=== PATIENT | male | born 1975 | race Caucasian/White ===

== ENCOUNTER 2025-04-16 08:54 | Inpatient (IN) ==
[2025-04-16] MEDS: TICAGRELOR 90 MG TAB ONE (09:11)
--- NOTE | 2025-04-16 09:14 | Emergency Department Note ---
Impression & Plan Cardiac arrest with ventricular fibrillation, ST elevation (STEMI) myocardial infarction ED Provider Note NAME: SAVITA OROZCO Jr AGE: 49 SEX: M : 1975 ARRIVES VIA: Ambulance INFORMANT: Patient, ED PROVIDER(S): Mayra Guerrero MD CHIEF COMPLAINT: Cardiac arrest HPI: This is a 49-year-old male present for postcardiac arrest. Patient reported complaint of shortness of breath earlier and then went unresponsive. Family started CPR. BLS arrived and did 2 shocks as per the AED. He ALS arrived and continued with 2 shocks as patient was in V-fib. Patient regained pulses at this time. Was given amiodarone 150 mg. Was given magnesium, aspirin. Patient arrives awake, alert, in pain from his chest. He states he has associated chest pressure/pain currently. He is diaphoretic. ROS: See above HPI for pertinent positives & negatives. A total of 10 systems reviewed and were otherwise negative. PAST MEDICAL HISTORY: See Below PAST SURGICAL HISTORY: See Below FAMILY HISTORY: See Below SOCIAL HISTORY: See Below HOME MEDICATIONS: See Below ALLERGIES: See Below VITALS: See Below PHYSICAL EXAMINATION: General: Moderate to severe distress due to pain Head: Normocephalic and atraumatic Eyes: Normal inspection, extraocular muscles intact Ear, nose, throat: Normal external exam Neck: Normal range of motion Respiratory: lungs clear to auscultation bilaterally Cardiovascular: Regular rate/rhythm, no murmur GI: soft, nontender, no guarding or rebound Extremities: nontender, moves all extremities Neuro: The patient awake and alert, appropriately conversive, no focal deficits, symmetric faces Skin: Warm, dry, and intact MEDICAL DECISION MAKING: This is a 49-year-old male presented postcardiac arrest. Patient was in V-fib with 4 shocks total 150 Amio, 1 g in magnesium, aspirin, fentanyl given and route. - Bedside echocardiogram performed by me reveals mildly reduced EF, no pericardial effusion, no right heart strain - Dr. Noriega and Dr. Hoffman, cardiology at bedside. They will take the patient up to the cardiac Sql Manager. - ECG independently interpreted by me with normal sinus rhythm, rate of 83, normal TX, left bundle branch block, normal QTc, no ST segment elevations consistent with STEMI criteria -Patient taken up to cardiac catheterization lab. I was then called by Dr. Hoffman to perform intubation as patient was having persistent pain and needing further sedation; concerning for airway protection -Patient assessed, Mallampati 4. Due to patient currently cardiac catheterization table, RSI was performed with rocuronium 100 and etomidate 25 - Patient preoxygenated. Upon initial intubation attempt, significant difficulty with patient's large tongue and positioning. Was able to visualized cords. Unable to pass bougie. Removed Cromwell scope and had difficulty with bagging. He became slightly hypoxic. Oral airway was placed to help improve oxygenation only minimal success. - Second attempt with a Mac 4 blade also unsuccessful due to patient's habitus. Anesthesia called at this time. On second attempt patient desatted significantly, and patient's pulse was temporarily lost. CPR was initiated by cardiac catheterization staff. After given epinephrine, successful ROSC obtained. - Anesthesia takes over and is able to intubate the patient. Endotracheal Intubation Indication sedation, airway protection The patient was on 100% oxygen via NRB prior to the procedure. Suction, airway equipment, RSI drugs, respiratory equipment, and appropriate personnel were prepared prior to the initiation of the procedure. A time out was taken. Induction was performed with rocuronium and etomidate after observing the clinical benefit of the medications, the airway was not visualized utilizing a glide scope. After multiple attempts, this unsuccessful. Anesthesia takes over successful intubation after repositioning. Differential diagnosis: ACS, Vfib, CHF Diagnostics interpreted by me: ECG: None Cardiac Monitoring: An order was placed for continuous cardiac monitoring. The monitor shows a rate of with rhythm. Past Med/Surg History Problem List (Updated 04/17/25 @ 15:32 by Mayra Guerrero MD) Hypoxic respiratory failure Encephalopathy acute Thromboembolism Cardiomyopathy Type 2 diabetes mellitus Heart failure with reduced ejection fraction ST elevation (STEMI) myocardial infarction (Acute) Cardiac arrest with ventricular fibrillation (Acute) Abnormal abdominal ultrasound Fatty liver Social History Smoking Status: Unknown if ever smoked Preferred Language: Ethiopian Beliefs That Will Affect Care: Spiritual Feels Safe at Home: Yes Allergies Allergies Allergy/AdvReac Type Severity Reaction Status Date / Time No Known Allergies Allergy Verified 12/02/24 08:24 Home Meds Home Medications Medication Instructions Recorded Confirmed No Known Home Medications 12/02/24 12/02/24 Results & Data (ED) Vital Signs Vital Signs - 24 hr 04/16/25 09:00 04/16/25 09:14 04/16/25 09:21 Temperature 36.6 C Temperature Source Axillary Pulse Rate 83 84 Respiratory Rate 14 Respiratory Depth Normal Blood Pressure 151/91 H Blood Pressure Mean 111 Pulse Oximetry 93 Oxygen Delivery Method Nasal Cannula Room Air Oxygen Flow Rate 6 Fraction of Inspired Oxygen Sepsis Recent Fever Within 48 Hours No Sepsis New/Unexplained Change in Mental Status No Sepsis Action Taken by Nursing No Action Required End-Tidal CO2 43 04/16/25 10:48 Temperature Temperature Source Pulse Rate 120 H Respiratory Rate 18 Respiratory Depth Blood Pressure Blood Pressure Mean Pulse Oximetry 98 Oxygen Delivery Method Oxygen Flow Rate Fraction of Inspired Oxygen 100 Sepsis Recent Fever Within 48 Hours Sepsis New/Unexplained Change in Mental Status Sepsis Action Taken by Nursing End-Tidal CO2 Laboratory Data 04/16/25 09:02 04/16/25 09:02 Lab Results 04/16/25 04/16/25 04/16/25 Range/Units 09:02 09:04 09:39 WBC 16.13 H (4.8-10.8) K/ul RBC 4.89 (4.70-6.10) M/uL Hgb 13.8 L (14.0-18.0) g/dl POC Hgb 14.6 (14.0-18.0) g/dl Hct 42.4 (42.0-52.0) % POC Hct 43 (42-52) % MCV 86.7 (80.0-100.0) fL MCH 28.2 (25.0-34.0) pg MCHC 32.5 (32.0-36.0) g/dL RDW Std Deviation 50.1 H (36.4-46.3) fL RDW Coeff of Deb 15.9 H (11.5-14.5) % Plt Count 260 (130-400) K/uL MPV 12.4 (9.4-12.4) fL Immature Gran % (Auto) 5.5 % Neut % (Auto) 77.6 % Lymph % (Auto) 12.2 % Sanborn % (Auto) 2.7 % Eos % (Auto) 1.5 % Baso % (Auto) 0.5 % Neut # (Auto) 12.52 H (1.40-6.50) K/uL Lymph # (Auto) 1.97 (1.20-3.40) K/uL Sanborn # (Auto) 0.43 (0.11-0.59) K/uL Eos # (Auto) 0.25 (0.00-0.50) K/uL Baso # (Auto) 0.08 (0.00-0.20) K/uL Immature Gran # (Auto) 0.88 H (0.01-0.20) K/uL Activ Coag Time Kaolin 176 H (94-140) SECONDS POC Sodium 139 (135-144) mmol/L Sodium 139 (136-145) mmol/L POC Potassium 4.3 (3.3-5.0) mmol/L Potassium 4.3 (3.5-5.1) mmol/L POC Chloride 104 (101-112) mmol/L Chloride 104 (98-107) mmol/L Carbon Dioxide 23 (21-32) mmol/L POC Total CO2 22 L (24-31) mmol/L Anion Gap 12 H (3-11) POC Anion Gap 19.0 (16-25) mmol/L POC BUN 22 H (7-18) mg/dl BUN 22 (6-23) mg/dl Creatinine 1.55 H (0.6-1.4) mg/dl POC Creatinine 1.7 H (0.6-1.3) mg/dl Est Cr Clr Drug Dosing Not Reportable eGFR 55.21 BUN/Creatinine Ratio 14.2 (10-20) Glucose 336 H* (70-99(Fasting)) mg/dl POC Glucose (other) 327 H (70-99) mg/dl Calcium 9.0 (8.6-10.3) mg/dl POC Ioniz Calcium Darrin 1.22 (1.12-1.32) mmol/l Total Bilirubin 0.5 (0.2-1.0) mg/dl AST 344 H (13-39) U/L ALT 344 H (7-52) U/L Alkaline Phosphatase 126 H (34-104) U/L Troponin I High Sens 636.5 H* (0-20) pg/ml Total Protein 6.5 (6.0-8.3) gm/dl Albumin 3.9 (3.4-5.0) gm/dl Globulin 2.6 (2.5-4.0) gm/dl Albumin/Globulin Ratio 1.5 (0.9-2) Lipase 52 (11-82) U/L 07/30/25 07/30/25 Range/Units 10:10 10:47 WBC (4.8-10.8) K/ul RBC (4.70-6.10) M/uL Hgb (14.0-18.0) g/dl POC Hgb (14.0-18.0) g/dl Hct (42.0-52.0) % POC Hct (42-52) % MCV (80.0-100.0) fL MCH (25.0-34.0) pg MCHC (32.0-36.0) g/dL RDW Std Deviation (36.4-46.3) fL RDW Coeff of Deb (11.5-14.5) % Plt Count (130-400) K/uL MPV (9.4-12.4) fL Immature Gran % (Auto) % Neut % (Auto) % Lymph % (Auto) % Sanborn % (Auto) % Eos % (Auto) % Baso % (Auto) % Neut # (Auto) (1.40-6.50) K/uL Lymph # (Auto) (1.20-3.40) K/uL Sanborn # (Auto) (0.11-0.59) K/uL Eos # (Auto) (0.00-0.50) K/uL Baso # (Auto) (0.00-0.20) K/uL Immature Gran # (Auto) (0.01-0.20) K/uL Activ Coag Time Kaolin 164 H 187 H (94-140) SECONDS POC Sodium (135-144) mmol/L Sodium (136-145) mmol/L POC Potassium (3.3-5.0) mmol/L Potassium (3.5-5.1) mmol/L POC Chloride (101-112) mmol/L Chloride (98-107) mmol/L Carbon Dioxide (21-32) mmol/L POC Total CO2 (24-31) mmol/L Anion Gap (3-11) POC Anion Gap (16-25) mmol/L POC BUN (7-18) mg/dl BUN (6-23) mg/dl Creatinine (0.6-1.4) mg/dl POC Creatinine (0.6-1.3) mg/dl Est Cr Clr Drug Dosing eGFR BUN/Creatinine Ratio (10-20) Glucose (70-99(Fasting)) mg/dl POC Glucose (other) (70-99) mg/dl Calcium (8.6-10.3) mg/dl POC Ioniz Calcium Darrin (1.12-1.32) mmol/l Total Bilirubin (0.2-1.0) mg/dl AST (13-39) U/L ALT (7-52) U/L Alkaline Phosphatase (34-104) U/L Troponin I High Sens (0-20) pg/ml Total Protein (6.0-8.3) gm/dl Albumin (3.4-5.0) gm/dl Globulin (2.5-4.0) gm/dl Albumin/Globulin Ratio (0.9-2) Lipase (11-82) U/L Administered Medications Discontinued Medications Amiodarone HCl/Dextrose (Amiodarone 150mg / 100ml D5w (Sql Manager Use Only)) Confirm Administered Dose 150 mg IV .[facility] ONE Stop: 04/16/25 09:15 Last Admin: 04/16/25 11:31 Dose: Not Given Documented By: AAF Amiodarone HCl/Dextrose (Amiodarone 360mg / 200ml D5w (Sql Manager Use Only)) Confirm Administered Dose 360 mg IV .[facility] ONE Stop: 04/16/25 09:16 Last Admin: 04/16/25 09:15 Dose: 1 mg Documented By: DOMINGA Amiodarone HCl/Dextrose (Amiodarone 150mg / 100ml D5w) Confirm Administered Dose 150 mg IV .[facility] ONE Stop: 04/16/25 12:30 Last Admin: 04/16/25 12:40 Dose: Not Given Documented By: CONSTANZA Amiodarone HCl (Amiodarone Hcl Inj 50 Mg/Ml 3 Ml Vial (Sql Manager Use Only)) Confirm Administered Dose 150 mg IV .[facility] ONE Stop: 04/16/25 09:14 Last Admin: 04/16/25 11:32 Dose: Not Given Documented By: AAF Fentanyl Citrate (Fentanyl Citrate Pf 100 Mcg/2 Ml Vial) Confirm Administered Dose 100 mcg .ROUTE .STorat.io-MED ONE Stop: 04/16/25 09:02 Last Admin: 04/16/25 11:28 Dose: 150 mcg Documented By: AAF Fentanyl Citrate (Fentanyl Citrate Pf 100 Mcg/2 Ml Vial) Confirm Administered Dose 100 mcg .ROUTE .STK-MED ONE Stop: 04/16/25 09:04 Last Admin: 04/16/25 11:30 Dose: Not Given Documented By: AAF Fentanyl Citrate (Fentanyl Citrate Pf 100 Mcg/2 Ml Vial) Confirm Administered Dose 100 mcg .ROUTE .STK-MED ONE Stop: 04/16/25 09:37 Last Admin: 04/16/25 11:33 Dose: Not Given Documented By: AAF Fentanyl Citrate (Fentanyl Citrate Pf 100 Mcg/2 Ml Vial) 50 mcg IV NOW STA Stop: 04/16/25 12:44 Last Admin: 04/16/25 12:53 Dose: 50 mcg Documented By: ES Fentanyl Citrate (Fentanyl Citrate 2,500 Mcg/250 Ml Bag) Confirm Administered Dose 2,500 mcg IV .STK-MED ONE Stop: 04/16/25 12:46 Last Admin: 04/16/25 12:46 Dose: 25 mcg Documented By: CONSTANZA Co-signed By: ANGÉLICA Furosemide (Furosemide 40 Mg/4 Ml Vial) Confirm Administered Dose 40 mg IV .STK- MED ONE Stop: 04/16/25 09:58 Last Admin: 04/16/25 10:00 Dose: 40 mg Documented By: DOMINGA Furosemide (Furosemide Inj 20 Mg/2 Ml Vial) Confirm Administered Dose 20 mg IV .STK-MED ONE Stop: 04/16/25 12:34 Last Admin: 04/16/25 12:37 Dose: 20 mg Documented By: CONSTANZA Furosemide (Furosemide 40 Mg/4 Ml Vial) Confirm Administered Dose 40 mg IV .STK- MED ONE Stop: 04/16/25 12:34 Last Admin: 04/16/25 12:37 Dose: 40 mg Documented By: CONSTANZA Furosemide (Furosemide 40 Mg/4 Ml Vial) 60 mg IV ONE ONE Stop: 04/16/25 12:33 Last Admin: 04/16/25 12:41 Dose: Not Given Documented By: CONSTANZA Heparin Sodium (Porcine) (Heparin (Porcine) 1000 Unit/Ml 10 Ml (Sql Manager Use Only)) Confirm Administered Dose 10,000 units .ROUTE .STK-MED ONE Stop: 04/16/25 09:02 Last Admin: 04/16/25 11:29 Dose: 16,000 units Documented By: AAF Heparin Sodium (Porcine) (Heparin Sod (Porcine) 1000 Unit/Ml) Confirm Administered Dose 1,000 units .ROUTE .STK-MED ONE Stop: 04/16/25 09:07 Last Admin: 04/16/25 11:30 Dose: Not Given Documented By: AAF Heparin Sodium (Porcine) (Heparin (Porcine) 1000 Unit/Ml 10 Ml (Sql Manager Use Only)) Confirm Administered Dose 10,000 units .ROUTE .STK-MED ONE Stop: 04/16/25 09:41 Last Admin: 04/16/25 11:33 Dose: Not Given Documented By: AAF Heparin Sodium (Porcine) (Heparin (Porcine) 1000 Unit/Ml 10 Ml (Sql Manager Use Only)) Confirm Administered Dose 10,000 units .ROUTE .STK-MED ONE Stop: 04/16/25 10:50 Last Admin: 04/16/25 11:35 Dose: Not Given Documented By: AAF Heparin Sodium/Sodium Chloride (Heparin In Nss Infusion 1000 Unit/500 Ml (2 U/Ml) Bag) Confirm Administered Dose 3,000 units IV .STK-MED ONE Stop: 04/16/25 09:02 Last Admin: 04/16/25 11:29 Dose: 3,000 units Documented By: AAF Amiodarone HCl/Dextrose (Nexterone / D5w) 360 mg in 200 mls @ 33.333 mls/hr IV ONE ONE; Protocol Stop: 04/16/25 17:57 Last Admin: 04/16/25 12:39 Dose: 1 mg/min, 33.3 mls/hr Documented By: CONSTANZA Co-signed By: ANGÉLICA Propofol (Diprivan) 1,000 mg in 100 mls @ 16.308 mls/hr IV .Q6H8M [facility]; Protocol Stop: 04/19/25 11:44 Last Admin: 04/16/25 12:42 Dose: 20 mcg/kg/min, 16.3 mls/hr Documented By: CONSTANZA Co-signed By: clarissa Levetiracetam (Levetiracetam 500 Mg/5 Ml Vial) 4,000 mg IV NOW STA Stop: 04/16/25 12:45 Last Admin: 04/16/25 12:48 Dose: 4,000 mg Documented By: CONSTANZA Levetiracetam (Levetiracetam 500 Mg/5 Ml Vial) Confirm Administered Dose 4,000 mg IV .STK-MED ONE Stop: 04/16/25 12:47 Last Admin: 04/16/25 12:50 Dose: Not Given Documented By: ES Lorazepam (Lorazepam 2 Mg/1 Ml Vial) Confirm Administered Dose 4 mg .ROUTE .STK- MED ONE Stop: 04/16/25 12:30 Last Admin: 04/16/25 12:40 Dose: 3 mg Documented By: ES Midazolam HCl (Midazolam Hcl 1 Mg/Ml 2ml Vial) Confirm Administered Dose 2 mg .ROUTE .STK-MED ONE Stop: 04/16/25 09:02 Last Admin: 04/16/25 11:29 Dose: 5 mg Documented By: AAF Midazolam HCl (Midazolam Hcl 1 Mg/Ml 2ml Vial) Confirm Administered Dose 2 mg .ROUTE .STK-MED ONE Stop: 04/16/25 09:36 Last Admin: 04/16/25 11:33 Dose: Not Given Documented By: AAF Midazolam HCl (Midazolam Hcl 1 Mg/Ml 2ml Vial) Confirm Administered Dose 2 mg .ROUTE .STK-MED ONE Stop: 04/16/25 10:12 Last Admin: 04/16/25 11:33 Dose: Not Given Documented By: AAF Miscellaneous (Rapid Sequence Induction Bag) Confirm Administered Dose 1 each N/A .STK-MED ONE Stop: 04/16/25 10:12 Last Admin: 04/16/25 11:34 Dose: 1 each Documented By: AAF Carrollaneous (Icu Protocol For Hyperglycemia) 1 each N/A ACHS ADE Stop: 04/18/25 16:29 Last Admin: 04/16/25 12:41 Dose: Not Given Documented By: ES Nicardipine HCl (Nicardipine 2,000 Mcg/20 Ml Syr) Confirm Administered Dose 2,000 mcg .ROUTE .STK-MED ONE Stop: 04/16/25 09:04 Last Admin: 04/16/25 11:30 Dose: 2,000 mcg Documented By: AAF Nitroglycerin/Dextrose (Nitroglycerin/D5w 100mcg/Ml 20ml Syr) Confirm Administered Dose 2,000 mcg .ROUTE .STK-MED ONE Stop: 04/16/25 09:03 Last Admin: 04/16/25 11:29 Dose: 2,000 mcg Documented By: AAF Norepinephrine Bitartrate (Norepinephrine/D5w 4 Mg/250 Ml) Confirm Administered Dose 4 mg IV .STK-MED ONE Stop: 04/16/25 10:33 Last Admin: 04/16/25 11:35 Dose: Not Given Documented By: AAF Phenylephrine HCl (Phenylephrine 100mcg/Ml 5ml Syr) Confirm Administered Dose 100 mcg .ROUTE .STK-MED ONE Stop: 04/16/25 09:38 Last Admin: 04/16/25 11:33 Dose: Not Given Documented By: AAF Propofol (Propofol Iv Emulsion 10 Mg/Ml 100 Ml Vial (Sql Manager Use Only)) Confirm Administered Dose 1,000 mg IV .STK-MED ONE Stop: 04/16/25 10:26 Last Admin: 04/16/25 11:34 Dose: 1,000 mg Documented By: AAF Ticagrelor (Ticagrelor 90 Mg Tab) Confirm Administered Dose 180 mg .ROUTE .STK- MED ONE Stop: 04/16/25 09:08 Last Admin: 04/16/25 09:11 Dose: 180 mg Documented By: AAF Vecuronium Duncombe (Vecuronium [place]combe 10 Mg Vial) 10 mg IV NOW STA Stop: 04/16/25 12:37 Last Admin: 04/16/25 12:46 Dose: 10 mg Documented By: CONSTANZA Co-signed By: RYLAND Discharge Plan Visit Data Chief Complaint: Chest Pain Stated Complaint: Post-Cardiac Arrest ED Provider: Mayra Guerrero Discharge Problem: Cardiac arrest with ventricular fibrillation, ST elevation (STEMI) myocardial infarction Patient Disposition: Admitted As Inpatient Condition: Critical Discharge Instructions Interventions: ED Discharge Assessment Last Done: 04/16/25 09:34
[2025-04-16] MEDS: AMIODARONE 360MG / 200ML D5W (CATH LAB USE ONLY) IV ONE (09:15)
--- NOTE | 2025-04-16 09:22 | Cardiology Consultation ---
Date of Consultation April 16, 2025 Assessment & Plan (1) Cardiac arrest with ventricular fibrillation: (2) ST elevation (STEMI) myocardial infarction: (3) Heart failure with reduced ejection fraction: (4) Type 2 diabetes mellitus: (5) Cardiomyopathy: (6) Thromboembolism: Plan ASSESSMENT/PLAN: 1. V-fib cardiac arrest: Prehospital and received CPR from followed by defibrillation x 4 and amiodarone 150 mg IV. Sinus rhythm here. Suspect from ischemic heart disease given post resuscitation ECG with ST elevation. Depending on hospital course and findings during cardiac catheterization, possible EP evaluation. 2. STEMI: ST elevations anterolateral leads. Ongoing chest pain. Administered nitroglycerin sublingual in the ER as he was also hypertensive. Has received pain meds. Full dose aspirin. Brilinta requested. Emergent cardiac catheterization recommended. Risk and benefits discussed with him and he verbally consented to proceed. Dr. Hoffman of interventional cardiology will perform the emergent procedure. 3. History of heart failure with reduced EF: Based on his 's description, likely heart failure with improved EF. Echo will be performed. Continue GDMT. 4. Cardiomyopathy: Apparently in the setting of COVID in 2022. Last EF per his was approximately 1.5 years ago at 50%. Echo as above. 5. Hypertension: Continue home medications as able. 6. Dyslipidemia: Statin therapy not on medication list. Can confirm with family later. Recommend high intensity statin therapy if no known adverse reaction/intolerance issues. On Zetia at home. 7. CAD: His reported LAD issues in the past but details unclear. Antiplatelet therapy. Medical therapy as above. Cardiac cath. 8. Disposition: Emergent cardiac catheterization with Dr. Hoffman. Highly complex medical issues. 40 min of critical care time spent, including evaluating patient in ER, reviewing cath images, coordinating care, discussing/meeting with patient's , and conversing with ER physician and interventional cardiology. History of Present Illness Reason for Consultation: STEMI/cardiac arrest Requesting Physician: Dr. Guerrero Attending Physician: Satya Hoffman MD History of Present Illness Mr. Bustos is a 49-year-old gentleman who presented to the ER this morning after cardiac arrest at home with ventricular fibrillation and ST elevations noted on postresuscitation ECG. Mr. Bustos was seen in the ER minutes after arrival. He was unable to give a past medical history although he was awake. He was expressing significant chest pain following CPR and with his ID. He also admitted to shortness of breath. He did not know his medications and other than diabetes, did not know his medical history. He was unaware of his medications. ER staff/EMS reported that he had an ID in the past. He confirmed this and stated he was in [place] but does not recall having a cardiac catheterization and denied any stents. ECG prior to arrival demonstrated sinus rhythm with significant ST elevations in the anterolateral leads. He received full dose aspirin by EMS, defibrillation x 4, amiodarone 150 mg IV, and Zofran. History was obtained from patient, although limited, and discussing with EMS, who was still present at the bedside. They provided a medication list which included carvedilol, eplerenone, Eliquis, Entresto, ezetimibe, Jardiance, Lasix, and Tradjenta. His then presented to the [facility] holding area. They have been 8 weeks but no some of his medical history. She reports having an ID in 2022 in [place]. She describes a " maker" situation and also clots in his liver and kidneys. She reports that he had a chest tube at that time based on previous conversations with him. She believes he had COVID at the time of the clots and ID. She does not recall him mentioning a stent. This morning, they were having intercourse and he began having shortness of breath and then lost consciousness. She quickly turned him on his back and did chest compressions, estimated for 10 minutes before EMS arrived. She states that he has not seen a sheet metal helper for at least 18 months. He goes to the [facility] for his usual care. She does not know the doses of his medications but provided a list noted above. She states that he is compliant with his medical therapy. Review of systems: Patient unable to provide much history due to significant pain. Family history: No known premature CAD per patient's . Social history: Lives at home with his , Hui. They have remarried the summer 2024. Previous tobacco smoker, currently vapes. No alcohol or drugs. 2 children from his first marriage (Ermelinda and Erik). First in 2022. His presented to the [facility] holding area following initial visit in the ER. Allergies Allergy/AdvReac Type Severity Reaction Status Date / Time No Known Allergies Allergy Verified 12/02/24 08:24 Home Medications Medication Instructions Recorded Confirmed Type No Known Home Medications 12/02/24 12/02/24 History Patient History Social History Smoking Status: Unknown if ever smoked Preferred Language: Kyrgyz Beliefs That Will Affect Care: Spiritual Feels Safe at Home: Yes Physical Exam Physical Exam: Gen.: Mild distress and in obvious pain. Alert. HEENT: Anicteric sclera. Neck: Thick neck. Cardiac: Regular. Normal S1-S2. No murmurs, rubs, or gallops. Pulmonary: Clear to anterior auscultation bilaterally without wheezes, rales, or rhonchi. Abdomen: Obese. Soft, nontender, nondistended. Extremities: 2+ radial pulses bilaterally. No edema or cyanosis. Results & Data Vital Signs (Past 12 Hours) Vital Signs Pulse 04/16/25 09:14 84 Laboratory Results Laboratory Results - last 24 hr 04/16/25 04/16/25 09:02 09:04 WBC 16.13 H RBC 4.89 Hgb 13.8 L POC Hgb 14.6 Hct 42.4 POC Hct 43 MCV 86.7 MCH 28.2 MCHC 32.5 RDW Std Deviation 50.1 H RDW Coeff of Deb 15.9 H Plt Count 260 MPV 12.4 POC Sodium 139 Sodium Pending POC Potassium 4.3 Potassium Pending POC Chloride 104 Chloride Pending Carbon Dioxide Pending POC Total CO2 22 L Anion Gap Pending POC Anion Gap 19.0 POC BUN 22 H BUN Pending Creatinine Pending POC Creatinine 1.7 H Est Cr Clr Drug Dosing Pending eGFR Pending BUN/Creatinine Ratio Pending Glucose Pending POC Glucose (other) 327 H Calcium Pending POC Ioniz Calcium Darrin 1.22 Total Bilirubin Pending AST Pending ALT Pending Alkaline Phosphatase Pending Troponin I High Sens Pending Total Protein Pending Albumin Pending Globulin Pending Albumin/Globulin Ratio Pending Lipase Pending Diagnostic Findings ECGs personally reviewed: Prehospital ECG 04/16/2025 at 8:22 AM: Sinus. Anterior infarct. Anterolateral ST elevation. ECG 04/16/2025 8:58 AM (ED): Sinus rhythm [address] elevations in lat eral/anterolateral leads, but improved from prehospital ECG. Anterior infarct. PG Care Time/CCT Total # of Minutes Spent Total Time Spent with Patient: Total time spent is greater than 50% in coordination of care (as documented) at patient's floor/unit and/or counseling patient: Coding Level of Care Code 25394 CRITICAL CARE 1ST 30-74M Diagnoses Cardiac arrest with ventricular fibrillation I46.9; I49.01 ST elevation (STEMI) myocardial infarction I21.3 Heart failure with reduced ejection fraction I50.20 Type 2 diabetes mellitus E11.9 Cardiomyopathy I42.9 Thromboembolism I74.9
[2025-04-16 09:38] LABS: Hematocrit (blood only) 42.4 % (42.0-52.0); Hemoglobin 13.8 g/dl (14.0-18.0); Mean Corpuscular Hemoglobin 28.2 pg (25.0-34.0); Mean Corpuscular Volume 86.7 fL (80.0-100.0); Platelet Count 260 K/uL (130-400); RDW Standard Deviation 50.1 fL (36.4-46.3); Red Blood Count 4.89 M/uL (4.70-6.10); White Blood Count 16.13 K/ul (4.8-10.8)
[2025-04-16 10:00] LABS: Alanine Aminotransferase 344 U/L (7-52); Albumin Globulin Ratio 1.5 (0.9-2); Alkaline Phosphatase 126 U/L (34-104); Anion Gap 12 (3-11); Bilirubin,Total 0.5 mg/dl (0.2-1.0); Blood Urea Nitrogen 22 mg/dl (6-23); Calcium 9.0 mg/dl (8.6-10.3); Carbon Dioxide 23 mmol/L (21-32); Chloride 104 mmol/L (98-107); Globulin 2.6 gm/dl (2.5-4.0); Lipase 52 U/L (11-82); Potassium 4.3 mmol/L (3.5-5.1); Sodium 139 mmol/L (136-145); Total Protein 6.5 gm/dl (6.0-8.3)
[2025-04-16] MEDS: FUROSEMIDE 40 MG/4 ML VIAL IV ONE ×3 (10:00→12:41)
[2025-04-16 10:07] LABS: Glucose 336 mg/dl (70-99(Fasting))
[2025-04-16 10:10] LABS: Immature Granulocytes # (auto) 0.88 K/uL (0.01-0.20); Immature Granulocytes % (auto) 5.5 %
--- NOTE | 2025-04-16 10:49 | Anesthesia Procedure Note ---
Anesthesia Procedure Note Intubation Note Date of procedure: 04/16/25 Indication for intubation: Failure to ventilate, Failure to oxygenate and Cardiac arrest Consent: Risk / Benefits Reviewed With: Emergency Monitors attached: Blood Pressure, CO2, EKG and Pulse Oximetry Time out completed: Yes Premedication: Etomidate (mg) Paralytic medication: Rocuronium (mg) Intubation technique: Two-hand mask, Cricoid pressure and Airway suctioned Equipment: Glidescope View: Grade 2 Endotracheal tube: 7.5, Tube secured @ cm (24) and Balloon inflated Attempts: 1 Tube placement confirmation: auscultation and Positive CO2 detection Procedure Summary: Alerted overhead for stat anesthesia to laborer laboratory, patient code blue with providers attempting intubation at head of bed with compressions. Patient obese with large tongue, view obstructed with blood. After suctioning adequate view obtained, I took over with glidescope 3 with Grade 2 view, patients airway anterior required cricoid pressure, after adjustment was able to place 7.5 ETT in trachea, cuff inflated patient, ROSC obtained at time of intubation, adequate ventilation, care turned over to laborer laboratory team Anesthesia Charges Indication for Procedure (1) Cardiac arrest with ventricular fibrillation:
[2025-04-16] MEDS: MIDAZOLAM HCL 1 MG/ML 2ML VIAL ONE ×3 (11:29→11:33)
[2025-04-16] MEDS: NITROGLYCERIN/D5W 100MCG/ML 20ML SYR ONE (11:29)
[2025-04-16] MEDS: HEPARIN (PORCINE) 1000 UNIT/ML 10 ML (CATH LAB USE ONLY) ONE ×3 (11:29→11:35)
[2025-04-16] MEDS: HEPARIN SOD (PORCINE) 1000 UNIT/ML ONE (11:30)
[2025-04-16] MEDS: niCARdipine 2,000 MCG/20 ML SYR ONE (11:30)
[2025-04-16] MEDS: AMIODARONE 150MG / 100ML D5W (CATH LAB USE ONLY) IV ONE (11:31)
[2025-04-16] MEDS: AMIODARONE HCL INJ 50 MG/ML 3 ML VIAL (CATH LAB USE ONLY) IV ONE (11:32)
[2025-04-16] MEDS: PHENYLEPHRINE 100MCG/ML 5ML SYR ONE (11:33)
[2025-04-16] MEDS: RAPID SEQUENCE INDUCTION BAG ONE (11:34)
[2025-04-16] MEDS: PROPOFOL IV EMULSION 10 MG/ML 100 ML VIAL (CATH LAB USE ONLY) IV ONE (11:34)
[2025-04-16] MEDS: NOREPINEPHRINE/D5W 4 MG/250 ML IV ONE (11:35)
[2025-04-16] MEDS ORDERED: STAT IV Infusion **Titration per Protocol STA ×2 (11:41→12:47)
[2025-04-16] MEDS ORDERED: PROPOFOL BOLUS FROM BAG IV PRN (11:41)
[2025-04-16] MEDS ORDERED: 0.2 MICRON FILTER SET 1 EACH IV ONE (11:41)
[2025-04-16] MEDS: FUROSEMIDE INJ 20 MG/2 ML VIAL IV ONE (12:37)
[2025-04-16 12:38] LABS: iSTAT Art Bld Gas Base Excess -4.0 meg/L (-9-1.8); iSTAT Art Bld Gas pCO2 Correct 58 mmHg (35-46); iSTAT Art Bld Gas pH Corrected 7.223 (7.35-7.45); iSTAT Arterial Blood Gas pO2 C 68
[2025-04-16] MEDS: AMIODARONE / D5W 360 MG/200 ML BAG IV ONE (12:39)
[2025-04-16] MEDS: AMIODARONE 150MG / 100ML D5W IV ONE (12:40)
[2025-04-16] MEDS: fentaNYL citrate 2,500 MCG/250 ML BAG IV ONE (12:46)
[2025-04-16] MEDS: VECURONIUM BROMIDE 10 MG VIAL IV STA (12:46)
--- NOTE | 2025-04-16 12:50 | XRay Report ---
XR chest 1V portable CLINICAL HISTORY: eval lung post cath COMPARISON STUDY: None FINDINGS: Endotracheal tube tip is in good position at the thoracic inlet. There is mild cardiomegaly with pulmonary vascular congestion. There is diffuse patchy opacity throughout both lungs. There is blunting of the left costophrenic angle. No pneumothorax. IMPRESSION: 1. Well-positioned endotracheal tube. 2. Diffuse patchy pulmonary opacities could represent pulmonary edema or pneumonia. There is a possib le trace left pleural effusion. ACT 112: Negative or not required by law. Electronically signed by: Oscar Malcolm M.D. 04/16/2025 12:49 PM
[2025-04-16] MEDS ORDERED: fentaNYL citrate 2,500 MCG/250 ML BAG IV SCH (13:00)
[2025-04-16] MEDS ORDERED: NOREPINEPHRINE/D5W 4 MG/250 ML IV ONE (13:20)
--- NOTE | 2025-04-16 17:59 | Critical Care Consultation ---
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 Patient had ROSC in the filed. Post arrest EKG showed ST elevations in the anterolateral leads. Patient was a difficult airway initial attempts at intubation were unsuccessful and resulted in critical hypoxia and PEA arrest. Patient intubated and ROSC was achieved. Patient underwent cardiac catheterization but unfortunately his LAD was unable to be revascularized. Neuro: Myoclonic jerking; Acute encephalopathy related to cardiac arrest; Sedation; Analgesia -On propofol upon arrival to ICU -Patient with noted myoclonic jerking. Given 2mg lorazepam. Loaded with 4grams Keppra (60mg/kg). -Fentanyl gtt started. Patient paralyzed with vecuronium for flight and to allow improved vent synchrony. CV: Anterolateral ND; STEMI; HFrEF; Vfib and PEA Cardiac arrest with ROSC -ST elevations in anterolateral leads -Cardiology consulted. Underwent cardiac cath with unsuccessful PCI. -Plan to transfer to [facility]. -Give 60mg of Lasix due to hypoxia, diffuse B lines on POCUS, and crackles on auscultaton. Pulm: Acute hypoxic respiratory failrue related to STEMI and cardiac arrest -Vent settigs: VC-AC 100% [id number] 10. RR decreased to 16 due to breath stacking/auto peep. -Maintain SpO2 > 92% -Optimize sedation GI: -NPO at this time -MIVF -Initiate tube feeds when able : -No acute issues -Monitor renal function and electrolytes Heme: -No acute issues -H/H stable -Monitor Endo: Diabetes Mellitus Type II; Stress Hyperglycemia -Hgba1c pending -Blood glucose on admission 336 -On Jardiance and Tradjenta. -Hyperglycemia protocol ID: Leukocytosis likley reactive in setting of STEMI and cardiac arrest Prophylaxis: -SCD for mechanical DVT prophylaxis -DVT chemoprophylaxis held at this time -GI prophylaxis with protonix Disposition: ICU for continued evaluation and management for LAD STEMI s/p unsuccessful PCI and respiratory failure requiring mechanical ventilation with high risk for decline and mortality. Patient transferred to [facility] for high level of care. updated at bedside. Patient is full code. I have personally spent 40 minutes of critical care time in the direct management of this patient. This is a life/limb threatening event. This includes time spent evaluating patient, direct bedside care, chart review, placing orders, interpretation of diagnostic studies, discussion with consultants, patient, and family members, as well as other required patient management activities. This time is exclusive of all separately billable procedures, and teaching time and separate from and in addition to any other critical care service time. History of Present Illness Reason for Consultation: Cardiac arrest with ROSC and STEMI with unsuccessful PCI. 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 Upon EMS evaluation the patient appeared to be in a V-fib arrest and ACLS was performed including 4 defibrillations, bolus of amiodarone, and . Patient has ROSC in the filed and was brought to [facility] ED Patient was responsive complaining of chest pain. Post arrest EKG showed ST elevations in the anterolateral leads. Patient taken emergently to the chemistry lab instructor. While in the chemistry lab instructor the patient was severe pain required more sedation for the catheterization and airway was called. Patient was a difficult airway due to body habitus and large tongue. Initial attempts at intubation were unsuccessful and resulted in critical hypoxia and PEA arrest. Patient was successfully intubated and ROSC was achieved. Patient underwent cardiac catheterization but unfortunately his LAD was unable to be revascularized. Patient brought to the ICU post cath for continued evaluation and management for LAD STEMI s/p unsuccessful PCI and respiratory failure requiring mechanical ventilation with high risk for decline and mortality. Allergies Allergy/AdvReac Type Severity Reaction Status Date / Time No Known Allergies Allergy Verified 12/02/24 08:24 Home Medications Medication Instructions Recorded Confirmed Type No Known Home Medications 12/02/24 12/02/24 History Patient History Social History Smoking Status: Unknown if ever smoked Preferred Language: Slovenian Beliefs That Will Affect Care: Spiritual Feels Safe at Home: Yes Review of Systems Review of Systems: Unobtainable due to endotracheal tube and Unobtainable due to reduced consciousness Physical Exam Physical Exam: VITALS: Reviewed. WEIGHT/BMI reviewed. GEN: Obese, well-developed, NAD. PSYCH: Good Judgment. AOx3. Normal memory, mood, and affect. HEENT -Head: NC/AT; -Eyes: PERRL, No discharge or redness; -Ears: External ears are normal. -Nose: Normal nares. NECK: Supple, with no masses. CV: RRR, no m/r/g. S1/S2 present. LUNGS: Crackles appreciate in bilateral lung vera L>R. Chest rise symmetrical. Breathing mechanically supported. ABD: Soft, NT/ND, NBS, no masses or organomegaly. : Meek catheter draining yellow clear urine. SKIN: Warm, well perfused. No skin rashes or abnormal lesions. MSK: No deformities, Normal gait. EXT: No clubbing, cyanosis, or edema. Right radial access site with TR band. No hematoma or bleeding. NEURO: Normal muscle strength and tone. No focal deficits. Results & Data Results & Data Vital Signs (Past 12 Hours) Vital Signs Temp Pulse Resp BP Pulse Ox O2 Del Method O2 Flow Rate 04/16/25 12:51 75/59 L 04/16/25 12:51 75/59 L 04/16/25 12:48 0 L 04/16/25 12:41 121/62 04/16/25 12:41 121/62 04/16/25 12:40 36.6 C 20 92 04/16/25 12:39 102 H 18 92 04/16/25 12:36 107 H 16 94 04/16/25 12:36 94/56 L 04/16/25 12:36 94/56 L 04/16/25 12:31 126/88 04/16/25 12:27 124 H 22 89 L 04/16/25 12:22 180/83 H 04/16/25 12:00 122 H 20 91 04/16/25 11:54 121 H 20 92 04/16/25 11:48 116 H 20 93 04/16/25 11:44 181/125 H 04/16/25 10:48 120 H 18 98 04/16/25 09:21 Room Air 04/16/25 09:14 84 04/16/25 09:00 36.6 C 83 14 151/91 H 93 Nasal Cannula 6 FiO2 04/16/25 12:51 04/16/25 12:51 04/16/25 12:48 04/16/25 12:41 04/16/25 12:41 04/16/25 12:40 04/16/25 12:39 04/16/25 12:36 04/16/25 12:36 04/16/25 12:36 04/16/25 12:31 04/16/25 12:27 04/16/25 12:22 04/16/25 12:00 04/16/25 11:54 100 04/16/25 11:48 04/16/25 11:44 04/16/25 10:48 100 04/16/25 09:21 04/16/25 09:14 04/16/25 09:00 Critical Care Results & Data Vital Signs (Past 12 Hours) Vital Signs Temp Pulse Resp BP Pulse Ox FiO2 04/16/25 12:51 75/59 L 04/16/25 12:51 75/59 L 04/16/25 12:48 0 L 04/16/25 12:41 121/62 04/16/25 12:41 121/62 04/16/25 12:40 36.6 C 20 92 04/16/25 12:39 102 H 18 92 04/16/25 12:36 107 H 16 94 04/16/25 12:36 94/56 L 04/16/25 12:36 94/56 L 04/16/25 12:31 126/88 04/16/25 12:27 124 H 22 89 L 04/16/25 12:22 180/83 H 04/16/25 12:00 122 H 20 91 04/16/25 11:54 121 H 20 92 100 04/16/25 11:48 116 H 20 93 04/16/25 11:44 181/125 H 04/16/25 10:48 120 H 18 98 100 Lab & Micro Results (Past 24 Hours) RBC 4.89 M/uL (4.70-6.10) 04/16/25 WBC 16.13 K/ul (4.8-10.8) H 04/16/25 Hgb 13.8 g/dl (14.0-18.0) L 04/16/25 Hct 42.4 % (42.0-52.0) 04/16/25 MCV 86.7 fL (80.0-100.0) 04/16/25 MCH 28.2 pg (25.0-34.0) 04/16/25 MCHC 32.5 g/dL (32.0-36.0) 04/16/25 RDW Standard Deviation 50.1 fL (36.4-46.3) H 04/16/25 RDW Coefficient of Variation 15.9 % (11.5-14.5) H 04/16/25 Plt Count 260 K/uL (130-400) 04/16/25 MPV 12.4 fL (9.4-12.4) 04/16/25 Neutrophils (%) (Auto) 77.6 % 04/16/25 Lymphocytes (%) (Auto) 12.2 % 04/16/25 Monocytes # (Auto) 0.43 K/uL (0.11-0.59) 04/16/25 Eosinophils # (Auto) 0.25 K/uL (0.00-0.50) 04/16/25 Immature Granulocyte % (Auto) 5.5 % 04/16/25 Neutrophils # (Auto) 12.52 K/uL (1.40-6.50) H 04/16/25 Lymphocytes # (Auto) 1.97 K/uL (1.20-3.40) 04/16/25 Monocytes # (Auto) 0.43 K/uL (0.11-0.59) 04/16/25 Eosinophils # (Auto) 0.25 K/uL (0.00-0.50) 04/16/25 Basophils # (Auto) 0.08 K/uL (0.00-0.20) 04/16/25 Immature Granulocyte # (Auto) 0.88 K/uL (0.01-0.20) H 04/16 Na 139 mmol/L (136-145) 04/16/25 K 4.3 mmol/L (3.5-5.1) 04/16/25 Cl 104 mmol/L (98-107) 04/16/25 CO2 23 mmol/L (21-32) 04/16/25 Anion Gap 12 (3-11) H 04/16/25 BUN 22 mg/dl (6-23) 04/16/25 Creatinine 1.55 mg/dl (0.6-1.4) H 04/16/25 BUN/Creatinine Ratio 14.2 (10-20) 04/16/25 Glu 336 mg/dl (70-99(Fasting)) H* 04/16/25 Ca 9.0 mg/dl (8.6-10.3) 04/16/25 Total Bilirubin 0.5 mg/dl (0.2-1.0) 04/16/25 AST 344 U/L (13-39) H 04/16/25 ALT 344 U/L (7-52) H 04/16/25 Alkaline Phosphatase 126 U/L (34-104) H 04/16/25 TP 6.5 gm/dl (6.0-8.3) 04/16/25 Albumin 3.9 gm/dl (3.4-5.0) 04/16/25 Globulin 2.6 gm/dl (2.5-4.0) 04/16/25 Albumin/Globulin Ratio 1.5 (0.9-2) 04/16/25 Calcium Level 9.0 mg/dl (8.6-10.3) 04/16/25 09:02 Diagnostic Findings (Past 24 Hours) Chest X-Ray 04/16/25 12:29 XR chest 1V portable CLINICAL HISTORY: eval lung post cath COMPARISON STUDY: None FINDINGS: Endotracheal tube tip is in good position at the thoracic inlet. There is mild cardiomegaly with pulmonary vascular congestion. There is diffuse patchy opacity throughout both lungs. There is blunting of the left costophrenic angle. No pneumothorax. IMPRESSION: 1. Well-positioned endotracheal tube. 2. Diffuse patchy pulmonary opacities could represent pulmonary edema or pn eumonia. There is a possible trace left pleural effusion. ACT 112: Negative or not required by law. Electronically signed by: Oscar Malcolm M.D. 04/16/2025 12:49 PM RT Ventilator Mngmt (Last Documented) Ventilator Ordered Settings Ventilator Support Mode Assist Control 04/16/25 11:54 Respiratory Rate 0 04/16/25 12:48 Ventilator Tidal Volume 480 04/16/25 11:54 Setting Minute Ventilation 9.6 04/16/25 11:54 Positive End Expiratory 10 04/16/25 11:54 Pressure Fraction of Inspired Oxygen 100 04/16/25 11:54 Ventilator - PT Measurements Respiratory Rate 0 Exhaled Tidal Volume 480 Minute Ventilation 9.6 Peak Inspiratory Airway 28 Pressure Plateau Pressure 25.2 Respiratory Cycle Inspiratory: 1:2.3 Expiratory Ratio Inspiratory Phase Time 0.9 End-Tidal CO2 43 Static Lung Compliance 31.58 Dynamic Lung Compliance 26.67 Normal Static Lung Compliance 47.00 Coding Level of Care Code 18332 CRITICAL CARE 1ST 30-74M Diagnoses Cardiomyopathy I42.9 Type 2 diabetes mellitus E11.9 Heart failure with reduced ejection fraction I50.20 ST elevation (STEMI) myocardial infarction I21.3 Cardiac arrest with ventricular fibrillation I46.9; I49.01 Encephalopathy acute G93.40 Hypoxic respiratory failure J96.91
[2025-04-16] MEDS ORDERED: AMIODARONE / D5W 360 MG/200 ML BAG IV SCH (18:00)
--- NOTE | 2025-04-16 21:41 | Procedure Note ---
Procedure Note Date of Service April 16, 2025 ARTERIAL LINE PROCEDURE NOTE: Procedure: Left Radial Arterial Line Placement Attending: Dr. Toney Ocampo APC: NANO Gomez Indication: Monitoring on Pressors/Frequent labs Anesthesia: Lidocaine 1% Consent was no singed due to emergent nature and necessity of the procedure. A time-out was completed verifying correct patient, procedure, site, positioning, and implant(s) or special equipment if applicable. Allens test was performed to ensure adequate perfusion. Patients left wrist was prepped and draped in the usual sterile fashion. Ultrasound guidance was used to aid needle placement. A 20g Arrow arterial line was introduced into the left radial artery. Catheter was threaded, and the needle was removed with appropriate blood return. Good waveform was observed. The patient tolerated the procedure well. Confirmation of placement with ultrasound. Images saved to medical record. Blood Loss: Minimal Complications: None Procedural Ultrasound Guidance: Procedure Date: 04/16/2025 Indication: Left arterial line guidance Attending: Dr. Toney Ocampo APC: NANO Gomez Artery Identified: YES Line confirmed in Artery with ultrasound: Yes Complications: NONE Patient tolerated procedure: [facility] Procedure Codes (Charges) Tubes, Drains, and Vasc Access Procedure 1: Tubes, Drains, and Vasc Access: [id number] Arterial Cath/Cannulation Sampling/Monitoring/Transfusion Procedure 2: Tubes, Drains, and Vasc Access: [id number] Ultrasound Guidance For Vascular Coding CPT Codes Tubes, Drains, and Vasc Access - Tubes, Drains, and Vasc Access: [id number] Arterial Cath/Cannulation Sampling/Monitoring/Transfusion ([id number]) Tubes, Drains, and Vasc Access - Tubes, Drains, and Vasc Access: [id number] Ultrasound Guidance For Vascular ([id number]) Additional Codes Date of Service (PG.SURGERY)
--- NOTE | 2025-04-16 23:08 | Cardiac Catheterization ---
[facility] Data: [employer] Supervisor Cardiac Status Clinical evaluation leading to the procedure CAD Presenation: Non STEMI and STEMI Diagnostic Physicians Name: Satya Hoffman MD Closure Device Recommendations: PCI without planned CABG Cardiac Cath Procedure Full Procedure Date April 16, 2025 Pre-Procedure Diagnosis Pre-Procedure Diagnosis: STEMI AUC Score AUC Score: 9 Post-Procedure Diagnosis Post-Procedure Diagnosis: Severe CAD, Unsuccessful PCI and Elevated Intracardiac Pressures Procedure(s) Performed Procedure(s) Performed: Coronary Angiography, Left Heart Cath and PTCA Skylights Assembler Satya Hoffman MD Manager Front Office(s) Showers Estimated Blood Loss Estimated Blood Loss: 40 Medication(s) Medication(s): Clopidogrel, Fentanyl, Heparin, Lidocaine 1%, Nicardipine, Nitroglycerin and Versed Summary of Findings Indication: STEMI/Heart Alert. [id number] cardiac arrest with bystander CPR. VT/VF with EMS before ROSC. Post ROSC ECG showed lateral ST elevations. Normal ST elevations improved on arrival to ED. Confused but able to answer questions. Hemodynamically and electrically stable off pressors. Access: 6 Fr slender right radial artery, 6 Fr right CFV Catheters: Diagnostic JR4, EBU 3.5 guide Findings: LM -Short, normal caliber, 20% mid/distal disease. LAD -medium caliber, 30% proximal, 100% earlymid occlusion. Subtotal proximal D1 occlusion with REYNALDO I antegrade mid flow and retrograde distal flow. Circumflex -medium caliber, 30-40% mid segment stenosis. 40% ostial medium OM2. RCA -dominant, large caliber, 30% proximal, 30% mid, 30 to 40% distal at takeoff of small PDA. Large posterior lateral branches without significant disease. RCA provides faint collaterals to very small distal LAD. LVEDP -46 -- PCI -- Antithrombotic therapy: Heparin, ticagrelor Procedure: Left main cannulated with EBU 3.5 guide With the aid of a GuideLiner, Rx river pilot 50 wire passed across mid LAD occlusion into very small LAD versus large septal that tapers prior to apex. Mid LAD dilated with 2.5 balloon to low atmospheres with minimal flow noted in small LAD/septal Patient continues to endorse chest pain and further attempts made to cross into subtotally occluded D1 or potentially larger LAD/diagonal vessel that extended to apex Attempt made with long whisper and OTW balloon but unsuccessful crossing into diagonals. Injection through OTW balloon confirmed intraluminal position of wire in distal LAD/septal and that vessel size was extremely small, too small for stenting. Wire and catheter removed so that diagnostic shots of RCA could be obtained to evaluate for collaterals. Noted to have only faint collaterals to this very small distal LAD/septal. With the lack of robust collaterals, ongoing pain decision to pursue additional attempts at intervention to diagonals. LVEDP noted to be 46 and given 40 of IV Lasix. After 16,000 of IV heparin ACT remained in 160s and 6 Fr sheath placed to right CFV for additional IV access Patient increasingly confused, agitated and decision made to electively intubate for airway protection and to safely perform additional attempts at intervention. Dr. Guerrero from ED was contacted for intubation. Received sedation and paralytic but due to patient's neck size, secretions there was difficulty with bagging and intubation. Patient had progressive hypoxia which led to progressive bradycardia/hypotension and eventual PEA arrest requiring CPR and epinephrine x 2 before ROSC Patient eventually intubated with assistance of anesthesia Last additional attempt made to cross diagonal occlusions with airplane patrol pilot 50 and Corsair catheter unsuccessful and procedure aborted. Post procedure chronic mid LAD occlusion persisted. No significant antegrade flow in distal very small LAD that received right to left collaterals. Post procedure history it was noted that patient had questionable " maker" [place] in [place] for 5 years ago and had previously worn LifeVest before reported recovered LV function on 4class GDMT. Arterial Closure: TR band Summary: 1. [id number] cardiac arrest 2. Transient lateral ST elevations initially after ROSC 3. 100% mid LAD occlusion and subtotal occlusion of D1. Very faint right to left collaterals to very small distal LAD 4. Mild nonculprit CAD 30-40% mid LCx, ostial OM2 30% proximal, mid and distal RCA 5. Severely elevated left-sided filling pressures (LVEDP 46) 6. Respiratory/PEA cardiac arrest during elective intubation requiring brief CPR and epi x 2 7. Unsuccessful attempted PCI of mid LAD, occluded diagonal. Angioplasty of mid LAD with 2.5 balloon but no significant antegrade flow into very small septal/distal LAD. 8. Postprocedure severe LV dysfunction on bedside echo, EF 20-25% Recommendations: Feel that patient's mid LAD disease is most likely chronic with faint right to left collaterals and reports of prior [place]. Arrest potentially related to heart failure/scar mediated. Plan on transfer to tertiary center for postarrest care and review by heart team for any additional revascularization options. Transferred to ICU for further monitoring in the interim. Received ticagrelor 180 mg prior to [employer] Supervisor Hemodynamics Rest Ao:: 116/70/97 Final Ao: 165/120/135 LV: 139/46 Recommendations Recommendations: PCI without planned CABG Radiation Exposure (mGy) 5074 Contrast (mls) 130 Anesthesia Moderate 9833-5279 Procedural Complication(s) None Disposition ICU I attest to the content of the Intraoperative Record and any orders documented therein. Any exceptions are noted below. [facility] Card Cath Procedure Codes Cardiac Catheterization Procedure 1: Cardiovascular Cath Procedures: 53898 Coronaries and LHC (+/-LV) Therapeutic Services & Ancillary Procedure 1: Cardiovascular Tx and Anc Procedures: 58575 Insertion Central Venous Catheter Procedure 2: Cardiovascular Tx and Anc Procedures: 23991 Code Blue/CPR Moderate Sedation Procedure 1: Sedation/Anesthesia: 76291 Mod Sedation by the same physician;Init15 Min Child Age 5 & Up Procedure 2: Sedation/Anesthesia: 52203 Mod Sedation by the same physician; Ea [id number] Minutes Angioplasty Procedure 1: Cardiovascular Angioplasty Procedures: 76417 PTCA; Single mafor coronary artery or branch RC LC LD PG Care Time/CCT Total # of Minutes Spent Total Time Spent with Patient: Total time spent is greater than 50% in coordination of care (as documented) at patient's floor/unit and/or counseling patient:
--- NOTE | 2025-04-16 23:16 | Discharge Summary ---
Date of Service April 16, 2025 Admission HPI Per Admitting Provider Mr. Bustos is a 49-year-old gentleman who presented to the ER this morning after cardiac arrest at home with ventricular fibrillation and ST elevations noted on postresuscitation ECG. Mr. Bustos was seen in the ER minutes after arrival. He was unable to give a past medical history although he was awake. He was expressing significant chest pain following CPR and with his MS. He also admitted to shortness of breath. He did not know his medications and other than diabetes, did not know his medical history. He was unaware of his medications. ER staff/EMS reported that he had an MS in the past. He confirmed this and stated he was in [place] but does not recall having a cardiac catheterization and denied any stents. ECG prior to arrival demonstrated sinus rhythm with significant ST elevations in the anterolateral leads. He received full dose aspirin by EMS, defibrillation x 4, amiodarone 150 mg IV, and Zofran. History was obtained from patient, although limited, and discussing with EMS, who was still present at the bedside. They provided a medication list which included carvedilol, eplerenone, Eliquis, Entresto, ezetimibe, Jardiance, Lasix, and Tradjenta. His then presented to the [facility] holding area. They have been 8 weeks but no some of his medical history. She reports having an MS in 2022 in [place]. She describes a " maker" situation and also clots in his li letty and kidneys. She reports that he had a chest tube at that time based on previous conversations with him. She believes he had COVID at the time of the clots and MS. She does not recall him mentioning a stent. This morning, they were having intercourse and he began having shortness of breath and then lost consciousness. She quickly turned him on his back and did chest compressions, estimated for 10 minutes before EMS arrived. She states that he has not seen a roll dough divider for at least 18 months. He goes to the [facility] for his usual care. She does not know the doses of his medications but provided a list noted above. She states that he is compliant with his medical therapy. Review of systems: Patient unable to provide much history due to significant pain. Family history: No known premature CAD per patient's . Social history: Lives at home with his , Hui. They have remarried the summer 2024. Previous tobacco smoker, currently vapes. No alcohol or drugs. 2 children from his first marriage (Ermelinda and Erik). First in 2022. His presented to the [facility] area following initial visit in the ER. Discharge Data Consultations 04/16/25 09:16 ED Decision to Admit Stat 04/16/25 11:42 Consult Ios Developer Routine 04/16/25 11:52 Burn CD for patient Stat Procedures Performed Operation Date: 04/16/25 08:45 Actual Procedures p Cineradiography w/Routine Exam - MD [facility] Up Aspiration/PCI w/KAT for Stemi - MD [facility] Up Cardiopulmonary Resuscitation - Satya Hoffman MD Hospital Course (1) Cardiac arrest with ventricular fibrillation: Plan Patient underwent emergent coronary angiography via right radial artery. He was found to have an occluded mid LAD and subtotally occluded diagonal. Angioplasty performed into very small LAD versus septal but resulted in minimal antegrade flow and vessel thought too small for stenting. Was also noted to have faint right to left collaterals to this small vessel. After multiple attempts to cross into other diagonal vessels procedure aborted as LAD disease felt to be chronic. While undergoing PCI decision made to electively intubate in the setting of agitation and need for airway protection. In the setting of patient's body habitus, secretions there was difficulty successfully bagging and intubating patient and developed hypoxia after sedation/paralytics with eventual bradycardia/hypotension and PEA arrest. Required CPR and epi x 2 before ROSC in [facility]. LVEDP 46. Postprocedure bedside echo showed EF 20-25%. Transferred to ICU postprocedure where was evaluated by engine lathe set up operator. Noted to have some myoclonic jerking and loaded with Ativan/Keppra. Also had difficulty with oxygenation requiring additional Lasix, paralytics. Following Lasix had mild hypotension and started on norepinephrine. He was transferred to [facility] for further postarrest care and review by heart team for any additional revascularization options. Coding Level of Care Code 01903 INP/OBS DISCH >30 MIN Diagnoses Cardiac arrest with ventricular fibrillation I46.9; I49.01
--- NOTE | 2025-04-18 04:48 | Electrocardiogram Report ---
Test Reason : Blood Pressure : */* mmHG Vent. Rate : 83 BPM Atrial Rate : 83 BPM P-R Int : 156 ms QRS Dur : 102 ms QT Int : 402 ms P-R-T Axes : * 0 -19 degrees QTcB Int : 472 ms Normal sinus rhythm Low voltage QRS Anterior infarct ST elevation consider lateral injury or acute infarct Abnormal ECG No previous ECGs available Confirmed by Kristopher Noriega ([id number]) on 04/18/2025 4:48:21 AM Referred By: REFERRED SELF Confirmed By: Kristopher Noriega
== END 2025-04-16 14:03 | disposition short-term general hospital (02) | DRG 280 ==
LOC: ED 08:54 → OR 09:15 → 1E 11:42
PROC: CLB.CPR (2025-04-16 08:45)